=== PATIENT | female | born 1990 | race African-American/Black ===

== ENCOUNTER → 2017-08-31 | Emergency (ER) | payer OTHER ==
[~2017-08-31] MED LIST: ACET325 PO; ACETAMINOPHEN 500 MG CPLT PO ONE; PENI500T PO; TRAM50 PO
[2017-08-31 21:25] LABS: BACTERIA, URINE FEW /hpf; BILIRUBIN, URINE NEG (NEG); BLOOD, URINE NEG (NEG); GLUCOSE,URINE NEG (NEG); KETONE, URINE TRACE mg/dL (NEG); MUCUS URINE FEW /lpf (OCC); NITRITE,URINE NEG (NEG); PH, URINE 6.5 (5.0-8.5); SQUAMOUS EPITHELIAL CELL URINE 3 /hpf (0-5); URINE COLOR YELLOW (YELLW/STRAW); URINE LEUKOCYTE ESTERASE TRACE (NEG)
--- NOTE | 2017-08-31 21:31 | PD ---
HPI Chief Complaint pelvic pressure Date Seen: Aug 31, 2017 Time Seen: 21:25 Travel History International Travel<30 Days: No Contact w/Intl Traveler<30Days: No Known Affected Area: No History of Present Illness HPI pt. is a 27 y/o @ 24 4/7 weeks w/ c/o pelvic/low abdominal pain. pt. has h /o cd x 3. pt. statesfor the last day has had pulling pain in lower abdomen/ groin w/ movement. pt. states can be sharp and dull. denies dysuria/voiding diff. pt. denies fever/chills. Weeks Gestation: 24 Para: 3 : 4 History Past Medical History Medical History: Denies Significant Hx Obstetric History Obstetric History , cd x 3 Past Surgical History Narrative Surgical cd x 3 Social History Alcohol Use: No Tobacco Use: No Substance Abuse: No Allergies-Medications (Allergen,Severity, Reaction): Coded Allergies: No Known Allergies (Verified , 05/08/13) Home Meds Active Scripts Tramadol Hcl (Ultram) 50 Mg Tab, 50 MG PO Q6 Y for 3 Days FOR PAIN Prov:IVORY GOLD D.O. 05/08/13 Penicillin V Potassium (Pen Vk) 500 Mg Tab, 500 MG PO QID, #40 Prov:IVORY GOLD D.O. 05/08/13 Reported Medications Acetaminophen (Tylenol) 325 Mg Tab, 325 MG PO Q6H, TAB 05/08/13 Review of Systems Except as stated in HPI: all other systems reviewed are Neg Physical Exam Narrative GENERAL: Well-nourished, well-developed patient. SKIN: Warm and dry. HEAD: Normocephalic and atraumatic. EYES: No scleral icterus. No injection or drainage. ENT: No nasal drainage noted. Mucous membranes pink. Airway patent. NECK: Supple, trachea midline. No JVD. CARDIOVASCULAR: Regular rate and rhythm without murmurs, gallops, or rubs. RESPIRATORY: Breath sounds equal bilaterally. No accessory muscle use. BREASTS: Bilateral exam showed no masses , no retractions, no nipple discharge. ABDOMEN/GI: Abdomen soft, non-tender, bowel sounds present, no rebound, no guarding Gravid GENITOURINARY: Uterine Contractions: none FHT's: Category: 1 Reactive: + Variability: mod EXTREMITIES: No cyanosis or edema. BACK: Nontender without obvious deformity. No CVA tenderness. NEUROLOGICAL: Awake and alert. Motor and sensory grossly within normal limits. Five out of 5 muscle strength in all muscle groups. Normal speech. Data Data Vital Signs Reviewed: Yes Orders Orders Urinalysis - C+S If Indicated (08/31/17 20:42) Robotic Technician Clear For Discharge (08/31/17 ) Acetaminophen (Tylenol) (08/31/17 21:30) Labs Laboratory Tests Test 08/31/17 20:10 [facility] Medical Record Reviewed: Yes Plan pt. to be d/c to home. pt. not in labor and most likely round lig pain. condition d/w pt. all ? answered. pt. given precautions for return. f/u as sched. Diagnosis Diagnosis: Primary Impression: 24 weeks gestation of Additional Impressions: Round ligament pain History of delivery Disposition: DISCHARGE HOME Hunter Barth Jr., MD Aug 31, 2017 21:31
== END | disposition home or self-care (01) ==
LOC: HOBED 19:46
DX: O26.892 Other specified pregnancy related conditions, second trimester (principal); R10.2 Pelvic and perineal pain; Z3A.24 24 weeks gestation of pregnancy
CPT/HCPCS: 81001; 99283